=== PATIENT | female | born 1975 | race Caucasian/White ===

== ENCOUNTER → 2016-05-23 | Outpatient (CLI) | payer OTHER ==
[~2016-05-23] MED LIST: PAXIL30 MG PO; PERCOCET 5/3251 EACH PO
--- NOTE | 2016-05-30 15:32 | RADIOLOGY REPORT PS360 ---
DIG MAMM-SCREEN JUAN JOSE W/CAD CAD Screening ORDERING PHYSICIAN : Nathanael Kaiser MD PATIENT AGE: 40 years GENDER: Female COMPARISON: Previous mammograms: November 2014 INDICATION: Routine screening 40-year-old. No hormones. No new complaints. TECHNIQUE: Standard CC and MLO images were obtained. R2 CAD reviewed. FINDINGS: Moderate asymmetry. Moderately dense Asymmetric fibroglandular elements towards the axillary tail right and left breast are again noted. RIGHT BREAST: On the MLO view there is a slightly triangular character area of density at the deep upper outer quadrant, 11 mm length. Most likely summation shadow but it is highlighted by CAD and is a change on today's MLO view.. Although it seems to dissipate somewhat on on today's cc and cc axillary views overall would I suggest the patient return for spot views of this area labeled a.. I anticipate this will compress out but if it persists ultrasound may be warranted.. LEFT BREAST: Asymmetric areas of density appear stable and upper-outer quadrant left breast. Appears reflect glandular tissue. A nodular density previously seen in this region is less evident. Given the overall stability since 2014 I believe a follow-up in one year the adequate here on the left. IMPRESSION: . .............. Right breast Additional area density on MLO view at the deep upper outer quadrant. -Most likely summation shadow, but is noted & warrants additional spot views. Spot MLO and 90 degrees and cc view recommended. Left breast: With no significant change. Follow up one year on left BI-RADS CATEGORY: 0_Incomplete: Need additional imaging RECOMMENDED FOLLOWUP: ADD ADDITIONAL IMAGING (A letter has been sent to the patient regarding results of the study.) . The minimal
== END ==
LOC: RAD 08:11
DX: Z12.31 Encounter for screening mammogram for malignant neoplasm of breast (principal)
CPT/HCPCS: G0202

== ENCOUNTER → 2017-01-18 | Outpatient (CLI) | payer OTHER ==
--- NOTE | 2017-01-24 18:53 | RADIOLOGY REPORT PS360 ---
US BREAST-RT COMPLETE W/AXILLA COMPARISON: 06/14/2016 INDICATION: Follow-up abnormal mammogram ORDERING PHYSICIAN: Nathanael Kaiser MD PATIENT AGE: 41 years TECHNIQUE: Standard images FINDINGS: A small cyst is present at 11:00 measuring 5 mm. There are 2 additional 5 mm cyst are present at 11:00. Complex cyst is noted at 11:00 at 3 mm. There is some tubular ectasia. Nodes are present in the right axilla. There is an area of decreased echogenicity at 9:00 with central hyperechogenicity probably due to small lymph node.. This measures 8 x 4 mm and was not demonstrated previously. This may also be due to fibroglandular tissue. IMPRESSION: Probably benign BI-RADS CATEGORY: 3_Probably Benign-Short Term F/U RECOMMENDED FOLLOWUP: 6 month sonographic follow-up of the right breast (A letter has been sent to the patient regarding results of the study.)
== END ==
LOC: RAD 14:11
DX: R92.8 Other abnormal and inconclusive findings on diagnostic imaging of breast (principal)
CPT/HCPCS: G0206-RT